=== PATIENT | male | born 1950 | race Caucasian/White ===

== ENCOUNTER 2017-02-15 08:44 | Day surgery (SDC) | payer MEDICARE, OTHER ==
[~2017-02-15 08:44] MED LIST: RINGERS SOLUTION,LACTATED 1,000 ML IV PRN; ceFAZolin SODIUM 1 GM VIAL IV PRN
--- OUTSIDE RECORDS SUMMARY | 2017-02-15 08:48 | XMS REPORT | Continuity of Care Document ---
:1950 Author Organization [facility] ([facility]) Address [address] [place] [address] Phone [phone] Care Team Providers Name Role Phone Gurvinder Pierre Primary Care Provider [phone] Source Comments This disclosure is being made pursuant to the Care Everywhere program, applicable federal and state laws, and may not contain all informaitonavailable regarding this patient.[facility] ([facility]) Active Allergies and Adverse Reactions Allergen Noted Date Severity Reactions Comments No Known Allergies 02/04/2010 Unknown Sxizgcw-Yap-Lzi Reductase Inhibitors 09/01/2015 Weakness Leg pain Current Medications Prescription Sig. Disp. Refills Start Date End Date Status rosuvastatin (CRESTOR) 20 Take 20 mg by Active mg tablet mouth daily. esomeprazole (NEXIUM) 40 mg Take 40 mg by Active EC capsule mouth 2 times daily. ibuprofen (MOTRIN) 800 mg Take 800 mg by Active tablet mouth 2 times daily. tamsulosin (FLOMAX) 0.4 mg Take 0.4 mg by Active ER capsule mouth daily. finasteride (PROSCAR) 5 mg Take 5 mg by Active tablet mouth daily. Doxycycline Monohydrate Take 40 mg by Active (ORACEA) 40 mg CM24 mouth daily. gabapentin 300 mg capsule Take 300 mg by Active mouth 2 times daily DOCOSAHEXANOIC ACID/EPA Take 1,200 mg by Active (FISH OIL PO) mouth 2 times daily. GLUCOSAMINE HCL/CHONDR LOPEZ A Take 1 Tab by Active NA (OSTEO BI-FLEX PO) mouth 2 times daily. MULTIVITAMIN Take 1 Cap by Active W-MINERALS/LUTEIN (CENTRUM mouth daily. SILVER PO) melatonin 10 mg Tab Take by mouth Active daily. traMADol 50 mg tablet Take 50 mg by Active mouth 4 times daily as needed. 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 Social History Tobacco Use Types Packs/Day Years Used Date Former Smoker Cigarettes 1 Quit: 09/25/1987 Smokeless Tobacco: Current User Snuff Tobacco Cessation:Ready to Quit: No Comments: Alcohol Use Drinks/Week oz/Week Comments Yes social Last Filed Vital Signs Vital Sign Reading Time Taken Blood Pressure 114/84 09/02/2015 12:05 PM [facility] Pulse 76 09/02/2015 12:05 PM [facility] Temperature 36.7 C (98.1 F) 09/06/2013 3:27 PM [facility] Respiratory Rate 18 09/06/2013 5:06 PM [facility] Height 1.702 m (5' 7") 09/02/2015 12:05 PM [facility] Weight 92.08 kg (203 lb) 09/02/2015 12:05 PM [facility] Body Mass Index 31.79 09/02/2015 12:05 PM [facility] Oxygen Saturation 94% 09/06/2013 5:06 PM [facility] Plan of Care Health Maintenance Due Date Last Done Comments HCV Screening 1950 Hepatitis B Vaccine (1 of 3 - Primary Series) 1950 Tdap Vaccine 1962 Lipid Disorder Screening 1969 Td Vaccine 1969 Colonoscopy 04/11/2001 Prostate Cancer Screening 2001 Zoster Vaccine 2011 Pneumococcal Vaccine (1 of 2 - PCV13) 2016 Influenza Vaccine: Seasonal (#1) 04/25/2016 Results from Last 3 Months Not on file
[2017-02-15] MEDS ORDERED: RINGERS SOLUTION,LACTATED 1,000 ML IV ONE (10:30)
[2017-02-15] MEDS ORDERED: RINGERS SOLUTION,LACTATED 1,000 ML IV PRN (13:35)
[2017-02-15] MEDS ORDERED: oxyCODONE HCL/ACETAMINOPHEN 1 TAB TABLET PO PRN (13:36)
[2017-02-15] MEDS ORDERED: HYDROmorphone HCL 2 MG/ML VIAL IV PRN (13:37)
--- NOTE | 2017-02-15 13:37 | OR ---
Operative Report - Dictated Report Narrative: Date: 02/15/2017 Physician: Oleksandr Mccartney M.D. Medical Records Supervisor: Sagar Carmona PA-C Preoperative diagnosis: Left Shoulder full-thickness massive rotator cuff tear Postoperative diagnosis: Left Shoulder full-thickness massive rotator cuff tear involving the supra and infraspinatus Procedure: Left shoulder arthroscopy with mini open rotator cuff repair of massive rotator cuff tear Anesthesia: General plus regional Complications: None Estimated blood loss: Minimal Specimens: None Retained implants: [employer] 4.5 mm peek helicoil anchor 4, footprint anchor 3 Drains: None Indications: Mr. Rosario Is a 66 year-old gentleman who has been followed in my clinic with complaints of shoulder pain consistent acute on chronic full-thickness rotator cuff tear. Physical exam and diagnostic imaging were consistent with his complaints and concern for full-thickness rotator cuff tear involving the supra and infraspinatus. Conservative measures have failed including, but not limited to, passage of time, activity modification, medications, physical therapy/home exercise program, or injections. The risks, benefits, and alternatives were discussed in clinic. The risks being , bleeding, infection, blood clots, nerve, tendon, ligament, blood vessel injury, persistent pain, arthrosis, stiffness, need for prolonged therapy, need for additional procedures, and persistent symptoms. Consent was obtained in the clinic. Procedure: After marking the correct extremity in the preoperative holding area, a timeout was performed in the operating room. IV antibiotics consisting of Ancef were administered prior to the procedure. A general followed by regional anesthetic was induced by the nurse endodontic assistant. This was in the supine position, then the patient was transitioned to a beachchair position with all bony prominences well-padded, head in neutral, the nonoperative arm well supported, and the legs padded with SCDs in place. The operative shoulder was then prepped and draped in a standard sterile fashion. Preoperatively the shoulder had full passive range of motion, and no gross instability. After marking out the bony landmarks , saline was infused into the joint through a posterior lateral portal site. A rowena incision was made, and the blunt trocar and cannula was introduced into the shoulder joint. An accessory portal was placed in the rotator cuff interval using a spinal needle for guidance. Upon initial evaluation, the biceps tendon showed mild tendinopathy but no tear or instability. The middle glenohumeral ligament was intact. Subscapularis tendon was intact. The glenoid showed minimal degenerative change. The humeral head articular surface showed minimal degenerative change. The anterior labrum was frayed but intact. The superior labrum was frayed but intact. The pouch was and unremarkable. The posterior labrum was frayed but intact. The supraspinatus tendon was torn and retracted to just beyond the level of the joint. The infraspinatus tendon was also torn and retracted to the same level as supraspinatus. Utilizing the accessory portal the tuberosity and rotator cuff were debrided using a shaver. Based on the arthroscopic findings, as well as exam and radiographic findings, it was elected to proceed with a mini open rotator cuff repair. A longitudinal incision centered over the previously identified rotator cuff tear was made just off the edge of the acromion. This was approximately 7 centimeters in length. The deltoid fascia was split sharply in line with its fibers, and blunt dissection was carried through the deltoid muscle. Any remaining subacromial bursal tissue was debrided in order to expose the underlying rotator cuff tear. The rotator cuff tear appeared to be inverted L orientation. The tuberosity was debrided of its soft tissues producing a bleeding bed for the tendon to be secured to. 4 4.5 mm PEEK helicoil anchor was placed just off the articular surface of the humeral head. A series of horizontal mattress sutures were placed at the prepared edge of the rotator cuff. This allowed for a tension-free return of the tendon to the greater tuberosity. The sutures were then passed longitudinally into 3 4.5 mm PEEK footprint anchor. This was performed and a suture bridge technique. This gave good overall compression to the rotator cuff at the insertion site. The shoulders place a range of motion and had no lift off of the repair site as well as no crepitance or signs of impingement. Full passive range of motion was able to be obtained. Once it was felt that the rotator cuff was adequately repaired, the wounds were thoroughly irrigated. 0 Vicryl was utilized in order to repair the deltoid fascia. 3-0 Vicryl was placed in the subcutaneous tissue. The rotator cuff incision as well as the portal sites were closed with interrupted nylon. Dressings consisting of Xeroform, 4 x 4, ABD, soft roll, and tape were applied. All sponge, needle, blade, and instrument counts were correct prior to closing the wounds. The patient was awoken and transferred to the postanesthesia care unit in stable condition.
[2017-02-15 14:47] VITALS: BP 140/75
== END 2017-02-15 08:45 | disposition home or self-care (01) ==
LOC: AMB 08:44
PROVIDERS: ATTEND Orthopaedic Surgery
PROC: 0LQ20ZZ Repair Left Shoulder Tendon, Open Approach (ICD-10-PCS; 2017-02-15)
PROC: 0RBK4ZZ Excision of Left Shoulder Joint, Percutaneous Endoscopic Approach (ICD-10-PCS; principal; 2017-02-15 11:30)
DX: M75.102 Unspecified rotator cuff tear or rupture of left shoulder, not specified as traumatic (principal); K21.9 Gastro-esophageal reflux disease without esophagitis; E78.00 Pure hypercholesterolemia, unspecified; E55.9 Vitamin D deficiency, unspecified; F17.200 Nicotine dependence, unspecified, uncomplicated; Z68.33 Body mass index [BMI] 33.0-33.9, adult